=== PATIENT | female | born 1955 | race Caucasian/White ===

== ENCOUNTER 2021-02-08 15:01 | Inpatient (IN) ==
[2021-02-08] MEDS ORDERED: Isovue-370 500 ML BOTTLE IVP ONE (15:19)
[2021-02-08] MEDS ORDERED: 0.9 % Sodium Chloride 1,000 ML IVC ONE (15:21)
[2021-02-08] MEDS ORDERED: *HR* FentaNYL (PF) 100 MCG/2 ML VIAL IVP ONE (15:21)
[2021-02-08] MEDS ORDERED: Ondansetron 4 MG/2 ML VIAL IVP ONE ×2 (15:32→18:17)
[2021-02-08 16:18] LABS: Basophils # 0.1 K/mcL (0.0-0.2); Basophils % 1.1 %; Eosinophils # 0.2 K/mcL (0.0-0.6); Eosinophils % 1.9 %; Hematocrit 46.4 % (35.3-44.9); Hemoglobin 16.6 g/dL (11.5-15.4); Immature Granulocytes % 0.2 % (0-4); Lymphocytes % 41.2 %; Mean Corpuscular HGB Conc 35.8 g/dL (31.6-35.5); Mean Corpuscular Hemoglobin 34.9 pg (28.0-33.3); Mean Corpuscular Volume 97.7 fL (83.0-100.0); Mean Platelet Volume 9.3 fL (9.4-12.4); Neutrophils # 4.5 K/mcL (1.6-8.9); Platelet Count 406 K/mcL (140-400); Red Blood Count 4.75 M/mcL (3.82-4.97); Red Cell Distribution Width 13.1 % (11.5-14.5); Segmented Neutrophils % 45.6 %; White Blood Count 9.8 K/mcL (4.3-11.1)
[2021-02-08 16:37] LABS: Alanine Aminotransferase 6 Units/L (7-52); Albumin 4.2 g/dL (3.5-5.7); Albumin/Globulin Ratio 1.5 (1.1-2.2); Alkaline Phosphatase 77 Units/L (34-104); Aspartate Amino Transferase 15 Units/L (13-39); BUN/Creatinine Ratio 8 (6-26); Bilirubin,Indirect 0.4 mg/dL (0.0-1.0); Bilirubin,Total 0.4 mg/dL (0.3-1.0); Blood Urea Nitrogen 6 mg/dL (8-23); Calcium 9.7 mg/dL (8.6-10.3); Carbon Dioxide 25 mEq/L (23-29); Chloride 104 mEq/L (98-107); Globulin 2.8 g/dL (2.4-3.5); Glucose 102 mg/dL (70-105); Osmolality,Calculated 282 (280-300); Potassium 3.6 mEq/L (3.5-5.1); Sodium 137 mEq/L (136-145); eGFR For African Americans > 60 (> 60); eGFR For Non-African Americans > 60 (> 60)
[2021-02-08] MEDS ORDERED: *HR* HYDROmorphone (PF) 1 MG/ML SYRINGE IVP STA (18:12)
[2021-02-08 18:22] LABS: Bilirubin,Urine Negative (Negative); Blood,Urine Negative (Negative); Clarity,Urine Clear (Clear); Color,Urine Light-Yellow (Yellow); Glucose,Urine (UA) Normal (Normal); Ketones,Urine Negative (Negative); Leukocyte Esterase,Urine Negative (Negative); Nitrite,Urine Negative (Negative); PH,Urine 6.5 pH Units (5.0-8.0); Protein,Urine Negative (Neg-Trace); Specific Gravity,Urine 1.029 (1.010-1.025); Urobilinogen,Urine Normal (Normal)
[2021-02-08 18:28] LABS: Lipase 31 Units/L (11-82)
[2021-02-08] MEDS ORDERED: Pantoprazole 40 MG VIAL IVP ONE (19:23)
[2021-02-08] MEDS ORDERED: Naloxone 0.4 MG/ML INJ IVP PRN (20:20)
[2021-02-08] MEDS ORDERED: Acetaminophen 325 MG TABLET PO PRN (20:20)
[2021-02-08] MEDS ORDERED: Ondansetron 4 MG/2 ML VIAL IVP PRN (20:20)
[2021-02-08] MEDS ORDERED: Morphine Sulfate 2 MG/ML SYRINGE IVP PRN (20:23)
[2021-02-08] MEDS: Ringers Solution, Lactated 1,000 ML IVC SCH (21:02)
[2021-02-09] MEDS: Ringers Solution, Lactated 1,000 ML IVC SCH ×3 (05:05→22:14)
[2021-02-09 05:33] LABS: Basophils # 0.2 K/mcL (0.0-0.2); Basophils % 1.7 %; Eosinophils # 0.4 K/mcL (0.0-0.6); Hematocrit 41.5 % (35.3-44.9); Immature Granulocytes % 0.4 % (0-4); Lymphocytes % 42.6 %; Mean Corpuscular Hemoglobin 34.1 pg (28.0-33.3); Mean Corpuscular Volume 100.2 fL (83.0-100.0); Mean Platelet Volume 9.5 fL (9.4-12.4); Monocytes % 10.7 %; Neutrophils # 3.8 K/mcL (1.6-8.9); Platelet Count 360 K/mcL (140-400); Red Blood Count 4.14 M/mcL (3.82-4.97); Red Cell Distribution Width 13.4 % (11.5-14.5); Segmented Neutrophils % 40.6 %; White Blood Count 9.3 K/mcL (4.3-11.1)
[2021-02-09 05:36] LABS: Hemoglobin 14.1 g/dL (11.5-15.4)
[2021-02-09 05:53] LABS: Alanine Aminotransferase 5 Units/L (7-52); Albumin 3.4 g/dL (3.5-5.7); Albumin/Globulin Ratio 1.6 (1.1-2.2); Alkaline Phosphatase 63 Units/L (34-104); Aspartate Amino Transferase 12 Units/L (13-39); BUN/Creatinine Ratio 8 (6-26); Bilirubin,Total 0.4 mg/dL (0.3-1.0); Blood Urea Nitrogen 6 mg/dL (8-23); Calcium 8.7 mg/dL (8.6-10.3); Carbon Dioxide 24 mEq/L (23-29); Chloride 110 mEq/L (98-107); Chol/HDL Ratio 6.3 (0-4.9); Cholesterol 176 mg/dL (< 200); Globulin 2.1 g/dL (2.4-3.5); Glucose 98 mg/dL (70-105); HDL Cholesterol 28 mg/dL (40-59); LDL Cholesterol,Calculated 124 mg/dL (< 100); Magnesium 1.7 mg/dL (1.6-2.6); Osmolality,Calculated 284 (280-300); Sodium 138 mEq/L (136-145); Total Protein 5.5 g/dL (6.4-8.9); Triglycerides 121 mg/dL (< 150); eGFR For African Americans > 60 (> 60); eGFR For Non-African Americans > 60 (> 60)
[2021-02-09 06:02] LABS: Prothrombin Time 12.1 Seconds (9.4-12.1)
[2021-02-09] MEDS: *HR* Enoxaparin 40 MG/0.4 ML SYRINGE SQ SCH (08:36)
[2021-02-09] MEDS: Pantoprazole 40 MG VIAL IVP SCH (09:12)
[2021-02-09] MEDS ORDERED: Temazepam 15 MG CAPSULE PO PRN (10:43)
[2021-02-09] MEDS: Gabapentin 400 MG CAPSULE PO SCH ×3 (13:55→22:11)
[2021-02-09] MEDS ORDERED: Ringers Solution, Lactated 1,000 ML IVC SCH (14:30)
[2021-02-09] MEDS ORDERED: Lidocaine -MPF 2% 2 ML VIAL ONE (16:37)
[2021-02-09] MEDS ORDERED: *HR* Rocuronium Bromide 50 MG/5 ML VIAL ONE (16:37)
[2021-02-09] MEDS ORDERED: *HR* FentaNYL (PF) 100 MCG/2 ML VIAL ONE (16:38)
[2021-02-09] MEDS ORDERED: EPHEDrine 50 MG/ML VIAL ONE (17:34)
[2021-02-09] MEDS ORDERED: Ondansetron 4 MG/2 ML VIAL ONE (17:45)
[2021-02-09] MEDS ORDERED: Acetaminophen IV 1,000 MG/100 ML BAG IVPB ONE (18:42)
[2021-02-09] MEDS ORDERED: Scopolamine Patch 1.5 MG PATCH.TD72 TD PRN (18:42)
[2021-02-09] MEDS ORDERED: *HR* HYDROmorphone 2 MG TABLET PO PRN (18:42)
[2021-02-09] MEDS ORDERED: *HR* OxyCODONE Immed Rel 5 MG TABLET PO PRN (18:42)
[2021-02-09] MEDS ORDERED: Promethazine 6.25 MG in Water for inj. (sterile) 20 ML IVPB PRN (18:42)
[2021-02-09] MEDS ORDERED: Famotidine 20 MG/2 ML VIAL IVP ONE (18:42)
[2021-02-09] MEDS ORDERED: *HR* Labetalol 20 MG/4 ML SYRINGE IVP PRN (18:42)
[2021-02-09] MEDS: *HR* HYDROmorphone PF 0.5 MG/0.5 ML SYRINGE IVP PRN ×2 (19:21→19:38)
[2021-02-10 02:24] LABS: Alanine Aminotransferase 7 Units/L (7-52); Albumin 3.5 g/dL (3.5-5.7); Albumin/Globulin Ratio 1.5 (1.1-2.2); Alkaline Phosphatase 66 Units/L (34-104); Aspartate Amino Transferase 19 Units/L (13-39); BUN/Creatinine Ratio 13 (6-26); Bilirubin,Total 0.3 mg/dL (0.3-1.0); Blood Urea Nitrogen 8 mg/dL (8-23); Calcium 8.5 mg/dL (8.6-10.3); Carbon Dioxide 21 mEq/L (23-29); Chloride 105 mEq/L (98-107); Globulin 2.3 g/dL (2.4-3.5); Glucose 137 mg/dL (70-105); Magnesium 1.6 mg/dL (1.6-2.6); Osmolality,Calculated 280 (280-300); Phosphorous 3.8 mg/dL (2.7-4.5); Potassium 4.1 mEq/L (3.5-5.1); Sodium 135 mEq/L (136-145); Total Protein 5.8 g/dL (6.4-8.9); eGFR For African Americans > 60 (> 60); eGFR For Non-African Americans > 60 (> 60)
[2021-02-10] MEDS: Ringers Solution, Lactated 1,000 ML IVC SCH ×2 (06:20→11:30)
[2021-02-10] MEDS: *HR* Enoxaparin 40 MG/0.4 ML SYRINGE SQ SCH (07:53)
[2021-02-10] MEDS: Pantoprazole 40 MG VIAL IVP SCH (07:53)
[2021-02-10] MEDS: Gabapentin 400 MG CAPSULE PO SCH ×4 (07:54→20:01)
[2021-02-10] MEDS: Multivit/Ca/Min/Fe/FA 1 TAB TABLET PO SCH (07:54)
[2021-02-10 09:16] LABS: Lipase 38 Units/L (11-82)
[2021-02-10] MEDS ORDERED: *HR* HYDROmorphone (PF) 1 MG/ML SYRINGE IVP ONE (16:38)
[2021-02-11 06:57] VITALS: BP 115/65
[2021-02-11] MEDS: *HR* Enoxaparin 40 MG/0.4 ML SYRINGE SQ SCH (07:50)
[2021-02-11] MEDS: Multivit/Ca/Min/Fe/FA 1 TAB TABLET PO SCH (07:51)
[2021-02-11] MEDS: Gabapentin 400 MG CAPSULE PO SCH ×2 (07:51→13:07)
[2021-02-11] MEDS: Pantoprazole 40 MG VIAL IVP SCH (07:51)
[2021-02-11] MEDS ORDERED: *HR* HYDROmorphone (PF) 1 MG/ML SYRINGE IVP ONE (08:49)
== END 2021-02-11 13:10 | disposition home or self-care (01) ==
LOC: EMEROOARM 15:01 → 3BNU 15:01 → SUATTDRO 20:03 → 3BNU 20:36
PROVIDERS: ADMIT Student in an Organized Health Care Education/Training Program; ATTEND Registered Nurse

== ENCOUNTER 2021-10-10 13:05 | Inpatient (IN) ==
[2021-10-10] MEDS ORDERED: Morphine Sulfate 2 MG/ML SYRINGE IVP ONE ×2 (18:00→21:04)
[2021-10-10] MEDS ORDERED: Ondansetron 4 MG/2 ML VIAL IVP ONE (18:00)
[2021-10-10 18:28] LABS: Bilirubin,Urine Negative (Negative); Blood,Urine Trace (Negative); Clarity,Urine Clear (Clear); Color,Urine Light-Yellow (Yellow); Glucose,Urine (UA) Normal (Normal); Ketones,Urine Negative (Negative); Leukocyte Esterase,Urine Negative (Negative); Nitrite,Urine Negative (Negative); Protein,Urine Negative (Neg-Trace); RBC,Urine 0-3 per hpf (0-3); Specific Gravity,Urine 1.007 (1.010-1.025); Squamous Epithelial Cell,Urine Few per hpf (None-Few); Urobilinogen,Urine Normal (Normal); WBC,Urine 0-3 per hpf (0-3)
[2021-10-10] MEDS: 0.9 % Sodium Chloride 1,000 ML IVC SCH (18:32)
[2021-10-10 18:33] LABS: Basophils # 0.1 K/mcL (0.0-0.2); Basophils % 0.5 %; Eosinophils # 0.1 K/mcL (0.0-0.6); Eosinophils % 0.4 %; Hematocrit 39.7 % (35.3-44.9); Hemoglobin 13.9 g/dL (11.5-15.4); Immature Granulocytes % 0.5 % (0-4); Lymphocytes # 2.4 K/mcL (0.6-4.6); Lymphocytes % 14.5 %; Mean Corpuscular Hemoglobin 34.7 pg (28.0-33.3); Mean Platelet Volume 9.1 fL (9.4-12.4); Monocytes # 1.2 K/mcL (0.0-1.3); Monocytes % 6.9 %; Neutrophils # 12.9 K/mcL (1.6-8.9); Platelet Count 285 K/mcL (140-400); Red Blood Count 4.01 M/mcL (3.82-4.97); Red Cell Distribution Width 12.6 % (11.5-14.5); Segmented Neutrophils % 77.2 %; White Blood Count 16.7 K/mcL (4.3-11.1)
[2021-10-10 18:53] LABS: Prothrombin Time 11.3 Seconds (9.4-12.1)
[2021-10-10 18:55] LABS: Activated Partial Thrombo Time 29.8 Seconds (26.0-36.0)
[2021-10-10 19:01] LABS: Influenza A PCR Negative (Negative); Influenza B PCR Negative (Negative); Resp. Syncytial Virus PCR Negative (Negative)
[2021-10-10 19:02] LABS: SARS-CoV-2 by PCR (In House) Negative (Negative)
[2021-10-10 19:23] LABS: Alanine Aminotransferase 12 Units/L (7-52); Albumin 4.1 g/dL (3.5-5.7); Albumin/Globulin Ratio 1.6 (1.1-2.2); Alkaline Phosphatase 69 Units/L (34-104); Aspartate Amino Transferase 22 Units/L (13-39); BUN/Creatinine Ratio 14 (6-26); Bilirubin,Total 0.5 mg/dL (0.3-1.0); Blood Urea Nitrogen 10 mg/dL (8-23); Calcium 8.9 mg/dL (8.6-10.3); Carbon Dioxide 21 mEq/L (23-29); Chloride 105 mEq/L (98-107); Globulin 2.5 g/dL (2.4-3.5); Glucose 120 mg/dL (70-105); Osmolality,Calculated 282 (280-300); Potassium 3.8 mEq/L (3.5-5.1); Sodium 136 mEq/L (136-145); Total Protein 6.6 g/dL (6.4-8.9); eGFR For African Americans > 60 (> 60); eGFR For Non-African Americans > 60 (> 60)
[2021-10-10] MEDS ORDERED: Naloxone 0.4 MG/ML INJ IVP PRN (20:07)
[2021-10-10] MEDS ORDERED: *HR* HYDROcodone/Acet 5/325 mg TABLET PO PRN (20:07)
[2021-10-10] MEDS ORDERED: Acetaminophen 325 MG TABLET PO PRN (20:07)
[2021-10-10] MEDS ORDERED: *HR* OxyCODONE Immed Rel 5 MG TABLET PO PRN (20:07)
[2021-10-10] MEDS: Nicotine 14 MG PATCH.TD24 TD SCH (22:50)
[2021-10-10] MEDS: Ipratropium/Albuterol Neb 3 ML IH SCH (23:45)
[2021-10-11] MEDS ORDERED: *HR* Dextrose 50 % in Water (Syg) 50 ML SYRINGE IVP PRN (00:43)
[2021-10-11] MEDS ORDERED: Dextrose Gel 15 GM/37.5 ML TUBE PO PRN ×2 (00:43)
[2021-10-11] MEDS ORDERED: D5% in Water 1,000 ML IVC PRN (00:43)
[2021-10-11 06:07] LABS: Basophils # 0.1 K/mcL (0.0-0.2); Basophils % 0.9 %; Eosinophils # 0.3 K/mcL (0.0-0.6); Eosinophils % 2.9 %; Hematocrit 37.3 % (35.3-44.9); Hemoglobin 12.8 g/dL (11.5-15.4); Immature Granulocytes % 0.3 % (0-4); Lymphocytes # 4.3 K/mcL (0.6-4.6); Lymphocytes % 36.5 %; Mean Corpuscular HGB Conc 34.3 g/dL (31.6-35.5); Mean Corpuscular Hemoglobin 35.2 pg (28.0-33.3); Mean Corpuscular Volume 102.5 fL (83.0-100.0); Mean Platelet Volume 9.5 fL (9.4-12.4); Monocytes # 1.5 K/mcL (0.0-1.3); Monocytes % 12.4 %; Neutrophils # 5.5 K/mcL (1.6-8.9); Platelet Count 259 K/mcL (140-400); Red Blood Count 3.64 M/mcL (3.82-4.97); White Blood Count 11.7 K/mcL (4.3-11.1)
[2021-10-11 07:37] LABS: BUN/Creatinine Ratio 15 (6-26); Blood Urea Nitrogen 12 mg/dL (8-23); Calcium 8.7 mg/dL (8.6-10.3); Carbon Dioxide 25 mEq/L (23-29); Chloride 107 mEq/L (98-107); Glucose 105 mg/dL (70-105); Osmolality,Calculated 286 (280-300); Potassium 4.2 mEq/L (3.5-5.1); Sodium 138 mEq/L (136-145); eGFR For African Americans > 60 (> 60); eGFR For Non-African Americans > 60 (> 60)
[2021-10-11] MEDS: Mirtazapine 15 MG TABLET PO SCH (09:39)
[2021-10-11] MEDS: Nicotine 14 MG PATCH.TD24 TD SCH (09:39)
[2021-10-11] MEDS: Ipratropium/Albuterol Neb 3 ML IH SCH ×4 (09:58→19:40)
[2021-10-11] MEDS ORDERED: Acetaminophen IV 1,000 MG/100 ML BAG IVPB ONE (18:44)
[2021-10-11] MEDS ORDERED: Ringers Solution, Lactated 500 ML IVC ONE (20:45)
[2021-10-11] MEDS ORDERED: *HR* Propofol 200 MG/20 ML VIAL IVP ONE (20:59)
[2021-10-11] MEDS ORDERED: Lidocaine -MPF 2% 5 ML VIAL ONE (21:00)
[2021-10-11] MEDS ORDERED: Sugammadex Sodium 200 MG/2 ML VIAL IV ONE ×2 (21:00→21:06)
[2021-10-11] MEDS ORDERED: Ondansetron 4 MG/2 ML VIAL ONE (21:00)
[2021-10-11] MEDS ORDERED: Lidocaine -MPF 4% 5 ML AMPUL ONE (21:00)
[2021-10-11] MEDS ORDERED: *HR* Rocuronium Bromide 50 MG/5 ML VIAL ONE (21:00)
[2021-10-11] MEDS ORDERED: *HR* HYDROmorphone PF 0.5 MG/0.5 ML SYRINGE IVP PRN (21:01)
[2021-10-11] MEDS ORDERED: Ondansetron 4 MG/2 ML VIAL IVP PRN (21:01)
[2021-10-11] MEDS ORDERED: Promethazine 6.25 MG in Water for inj. (sterile) 20 ML IVPB PRN (21:01)
[2021-10-11] MEDS ORDERED: *HR* Labetalol 20 MG/4 ML SYRINGE IVP PRN (21:01)
[2021-10-11] MEDS ORDERED: *HR* OxyCODONE Immed Rel 5 MG TABLET PO PRN (21:01)
[2021-10-11] MEDS ORDERED: Albuterol 2.5 MG/3 ML NEBULIZER IH PRN (21:01)
[2021-10-11] MEDS ORDERED: *HR* FentaNYL (PF) 100 MCG/2 ML VIAL ONE ×2 (21:44→22:59)
[2021-10-11] MEDS ORDERED: Vancomycin 1,000 MG VIAL ONE (21:52)
[2021-10-11] MEDS ORDERED: *HR* HYDROMORPHONE 2 MG/ML VIAL ONE (23:45)
[2021-10-12] MEDS: Ipratropium/Albuterol Neb 3 ML IH SCH ×2 (03:40→08:20)
[2021-10-12 05:15] LABS: Basophils # 0.1 K/mcL (0.0-0.2); Basophils % 0.3 %; Hematocrit 34.9 % (35.3-44.9); Hemoglobin 11.7 g/dL (11.5-15.4); Immature Granulocytes % 0.5 % (0-4); Lymphocytes # 1.9 K/mcL (0.6-4.6); Lymphocytes % 10.9 %; Mean Corpuscular HGB Conc 33.5 g/dL (31.6-35.5); Mean Corpuscular Hemoglobin 33.9 pg (28.0-33.3); Mean Corpuscular Volume 101.2 fL (83.0-100.0); Mean Platelet Volume 9.7 fL (9.4-12.4); Monocytes # 1.4 K/mcL (0.0-1.3); Platelet Count 237 K/mcL (140-400); Red Blood Count 3.45 M/mcL (3.82-4.97); Red Cell Distribution Width 13.1 % (11.5-14.5); Segmented Neutrophils % 80.3 %; White Blood Count 17.5 K/mcL (4.3-11.1)
[2021-10-12] MEDS ORDERED: CeFAZolin 2 GM/120 ML BAG IVPB SCH (08:00)
[2021-10-12] MEDS: Mirtazapine 15 MG TABLET PO SCH (08:35)
[2021-10-12] MEDS: 0.9 % Sodium Chloride 1,000 ML IVC SCH ×4 (08:35→19:56)
[2021-10-12] MEDS: Nicotine 14 MG PATCH.TD24 TD SCH (08:35)
[2021-10-12] MEDS ORDERED: Ipratropium/Albuterol Neb 3 ML IH PRN (09:37)
[2021-10-12] MEDS: Ketorolac 30 MG/ML VIAL IVP PRN ×2 (10:21→16:50)
[2021-10-12] MEDS: Gabapentin 400 MG CAPSULE PO SCH ×3 (12:37→19:48)
[2021-10-12] MEDS ORDERED: Morphine Sulfate 2 MG/ML SYRINGE IVP ONE (23:58)
[2021-10-13] MEDS: 0.9 % Sodium Chloride 1,000 ML IVC SCH ×3 (02:22→18:31)
[2021-10-13] MEDS: Ketorolac 30 MG/ML VIAL IVP PRN ×2 (02:23→10:01)
[2021-10-13 03:44] LABS: Basophils # 0.1 K/mcL (0.0-0.2); Basophils % 0.8 %; Eosinophils # 0.3 K/mcL (0.0-0.6); Eosinophils % 2.2 %; Hematocrit 31.2 % (35.3-44.9); Hemoglobin 10.5 g/dL (11.5-15.4); Immature Granulocytes % 0.4 % (0-4); Lymphocytes # 4.6 K/mcL (0.6-4.6); Lymphocytes % 36.1 %; Mean Corpuscular HGB Conc 33.7 g/dL (31.6-35.5); Mean Corpuscular Hemoglobin 34.3 pg (28.0-33.3); Mean Platelet Volume 9.9 fL (9.4-12.4); Monocytes # 1.5 K/mcL (0.0-1.3); Monocytes % 11.6 %; Neutrophils # 6.3 K/mcL (1.6-8.9); Platelet Count 224 K/mcL (140-400); Red Blood Count 3.06 M/mcL (3.82-4.97); Red Cell Distribution Width 13.2 % (11.5-14.5); Segmented Neutrophils % 48.9 %; White Blood Count 12.8 K/mcL (4.3-11.1)
[2021-10-13 04:03] LABS: BUN/Creatinine Ratio 23 (6-26); Blood Urea Nitrogen 14 mg/dL (8-23); Calcium 7.8 mg/dL (8.6-10.3); Carbon Dioxide 24 mEq/L (23-29); Chloride 111 mEq/L (98-107); Glucose 88 mg/dL (70-105); Osmolality,Calculated 290 (280-300); Potassium 3.7 mEq/L (3.5-5.1); Sodium 140 mEq/L (136-145); eGFR For African Americans > 60 (> 60); eGFR For Non-African Americans > 60 (> 60)
[2021-10-13] MEDS: Gabapentin 400 MG CAPSULE PO SCH ×4 (09:22→19:59)
[2021-10-13] MEDS: Mirtazapine 15 MG TABLET PO SCH (09:22)
[2021-10-13] MEDS: Nicotine 14 MG PATCH.TD24 TD SCH (09:23)
[2021-10-13] MEDS ORDERED: Sennosides 8.6 MG TABLET PO ONE (12:55)
[2021-10-13] MEDS ORDERED: *HR* OxyCODONE/APAP 5/325 TABLET PO PRN (12:55)
[2021-10-13] MEDS: *HR* OxyCODONE/APAP 10/325 TABLET PO PRN ×2 (14:28→20:43)
[2021-10-13] MEDS: Aspirin Enteric Coated 325 MG Tablet PO SCH (15:29)
[2021-10-14] MEDS: *HR* OxyCODONE/APAP 10/325 TABLET PO PRN ×4 (00:10→23:36)
[2021-10-14] MEDS: 0.9 % Sodium Chloride 1,000 ML IVC SCH ×3 (02:50→21:40)
[2021-10-14 05:08] LABS: Basophils # 0.1 K/mcL (0.0-0.2); Basophils % 1.2 %; Eosinophils # 0.6 K/mcL (0.0-0.6); Eosinophils % 5.3 %; Hematocrit 33.3 % (35.3-44.9); Hemoglobin 10.7 g/dL (11.5-15.4); Immature Granulocytes % 0.5 % (0-4); Lymphocytes % 41.5 %; Mean Corpuscular HGB Conc 32.1 g/dL (31.6-35.5); Mean Corpuscular Hemoglobin 34.2 pg (28.0-33.3); Mean Corpuscular Volume 106.4 fL (83.0-100.0); Mean Platelet Volume 9.5 fL (9.4-12.4); Monocytes # 1.2 K/mcL (0.0-1.3); Monocytes % 9.5 %; Neutrophils # 5.1 K/mcL (1.6-8.9); Platelet Count 258 K/mcL (140-400); Red Blood Count 3.13 M/mcL (3.82-4.97); Red Cell Distribution Width 13.5 % (11.5-14.5); White Blood Count 12.1 K/mcL (4.3-11.1)
[2021-10-14] MEDS: Aspirin Enteric Coated 325 MG Tablet PO SCH (09:09)
[2021-10-14] MEDS: Gabapentin 400 MG CAPSULE PO SCH ×4 (09:09→20:04)
[2021-10-14] MEDS: Nicotine 14 MG PATCH.TD24 TD SCH (09:10)
[2021-10-14] MEDS: Ketorolac 30 MG/ML VIAL IVP SCH (09:10)
[2021-10-14] MEDS: Mirtazapine 15 MG TABLET PO SCH (09:10)
[2021-10-14] MEDS ORDERED: Morphine Sulfate 2 MG/ML SYRINGE IVP ONE (21:02)
[2021-10-15] MEDS: *HR* OxyCODONE/APAP 10/325 TABLET PO PRN ×3 (03:37→20:08)
[2021-10-15] MEDS: 0.9 % Sodium Chloride 1,000 ML IVC SCH ×3 (05:53→13:59)
[2021-10-15] MEDS: Ketorolac 30 MG/ML VIAL IVP SCH (08:27)
[2021-10-15] MEDS: Nicotine 14 MG PATCH.TD24 TD SCH (08:28)
[2021-10-15] MEDS: Gabapentin 400 MG CAPSULE PO SCH ×4 (08:28→20:08)
[2021-10-15] MEDS: Mirtazapine 15 MG TABLET PO SCH (08:28)
[2021-10-15] MEDS: Aspirin Enteric Coated 325 MG Tablet PO SCH (08:28)
[2021-10-16] MEDS: *HR* OxyCODONE/APAP 10/325 TABLET PO PRN ×2 (04:23→08:43)
[2021-10-16 06:52] VITALS: TEMP 98.2
[2021-10-16] MEDS: 0.9 % Sodium Chloride 1,000 ML IVC SCH ×2 (07:14→09:29)
[2021-10-16] MEDS: Ketorolac 30 MG/ML VIAL IVP SCH (08:42)
[2021-10-16] MEDS: Aspirin Enteric Coated 325 MG Tablet PO SCH (08:43)
[2021-10-16] MEDS: Mirtazapine 15 MG TABLET PO SCH (08:43)
[2021-10-16] MEDS: Gabapentin 400 MG CAPSULE PO SCH (08:43)
[2021-10-16] MEDS: Nicotine 14 MG PATCH.TD24 TD SCH (08:44)
[2021-10-16 10:56] VITALS: BP 152/83; PULSE 77; O2SAT 94
== END 2021-10-16 12:47 | DRG 482 ==
LOC: EMEROOARM 13:05 → 4WAOSI 13:05 → SUATTDRO 19:50 → 4WAOSI 20:39 → SUATTDRO 21:05
PROVIDERS: ADMIT Internal Medicine; ATTEND Internal Medicine